=== PATIENT | female | born 1970 | race Caucasian/White ===

== ENCOUNTER 2022-02-26 13:29 | Emergency (ER) | payer OTHER ==
[2022-02-26 14:22] LABS: HEMOGLOBIN 14.6 gm/dl (12.3-15.3); RED BLOOD COUNT 4.77 M/UL (4.00-5.10); WHITE BLOOD COUNT 11.5 K/UL (4.5-11.0)
[2022-02-26 14:54] LABS: BUN/CREATININE RATIO 15 (0-10)
[2022-02-26] MEDS ORDERED: [UNRECOGNIZED DRUG - OTHER] (18:22)
[2022-02-26] MEDS ORDERED: BENTYL 10MG CAP10 MG PO (18:22)
[2022-02-26] MEDS ORDERED: [UNRECOGNIZED DRUG - REMARK] (18:22)
[2022-02-26] MEDS ORDERED: PEPTO-BISM525 MG/15 PO (18:22)
[2022-02-26] MEDS ORDERED: PERCOCET 5/325 T1 EA PO (18:22)
== END 2022-02-26 18:38 | disposition home or self-care (01) ==
LOC: ER1 13:29
PROVIDERS: Physician Assistant
DX: K62.5 Hemorrhage of anus and rectum (principal); F17.210 Nicotine dependence, cigarettes, uncomplicated
CPT/HCPCS: 80053; 83690; 85025; 96374; 96375; 99284; J2270; J2405; Q9967